=== PATIENT | female | born 1975 | race Caucasian/White ===

== ENCOUNTER 2022-12-18 02:49 | Day surgery (SDC) | payer OTHER ==
[~2022-12-18 02:49] MED LIST: BUPIVACAINE HCL/PF 0.25% (2.5MG/ML) 10 ML VIAL IJ ONE; ceFAZolin SODIUM 1 GM VIAL IVPB ONE; cefOXitin SODIUM 2 GM VIAL (RESTRICTED TO ID) IVPB ONE
[2022-12-18 03:00] VITALS: BMI 33.6
[2022-12-18] MEDS ORDERED: SODIUM CHLORIDE 0.9% 500 ML INFUS.BAG IV ONE ×2 (03:36→07:22)
[2022-12-18] MEDS ORDERED: ONDANSETRON 4 MG/2 ML VIAL IVPUSH ONE (03:37)
[2022-12-18] MEDS ORDERED: morphine CARPU-JECT 2 MG/1 ML DISP.SYRIN IVPUSH ONE (03:40)
[2022-12-18] MEDS ORDERED: ONDANSETRON 4 MG/2 ML VIAL ONE ×2 (03:51→11:23)
[2022-12-18 04:12] LABS: BASO % 0.2 % (0-2.0); EOS % 0.1 % (0-4.5); HEMATOCRIT 35.9 % (32.4-45.2); HEMOGLOBIN 11.9 GM/dL (10.7-15.3); LYMPH % 10.4 % (8-40); MCH 27.9 pg (25.7-33.7); MCHC 33.2 g/dl (32.0-36.0); MEAN PLT VOLUME 7.5 fl (7.5-11.1); NEUT % 82.3 % (42.8-82.8); PLATELET COUNT 319 10^3/uL (134-434); RBC 4.27 M/mm3 (3.60-5.2); RDW 13.8 % (11.6-15.6); WHITE BLOOD COUNT 10.1 K/mm3 (4.0-10.0)
[2022-12-18 04:31] LABS: POTASSIUM 4.4 mmol/L (3.5-5.1)
[2022-12-18 04:33] LABS: ALBUMIN 3.2 g/dl (3.4-5.0); CALCIUM 8.9 mg/dL (8.5-10.1)
[2022-12-18 04:34] LABS: BLOOD UREA NITROGEN 13.7 mg/dL (7-18)
[2022-12-18 04:36] LABS: CREATININE 0.9 mg/dL (0.55-1.3)
[2022-12-18 04:39] LABS: BILIRUBIN,TOTAL 0.7 mg/dL (0.2-1)
[2022-12-18 06:24] LABS: EPI CELLS 22 /uL (0-25.1); HYALINE CASTS 1 /uL (0-3.1); PH,URINE 7.5 (5.0-8.0); URINE APPEARANCE CLEAR; URINE BACTERIA 92 /uL (0-1359); URINE BILIRUBIN NEGATIVE (NEGATIVE); URINE COLOR YELLOW; URINE GLUCOSE (UA) NEGATIVE (NEGATIVE); URINE KETONE NEGATIVE (NEGATIVE); URINE LEUK ESTERASE TRACE (NEGATIVE); URINE NITRITE NEGATIVE (NEGATIVE); URINE PROTEIN 2+ (NEGATIVE); URINE UROBILINOGEN 0.2 mg/dL (0.2-1.0); URINE WBC 37 /uL (0-25.8)
[2022-12-18] MEDS ORDERED: CEFTRIAXONE 1 GM/50 ML BAG ONE (06:42)
[2022-12-18] MEDS ORDERED: CEFTRIAXONE 1 GM in DEXTROSE 5%-WATER - 50 ML IVPB ONE (06:42)
[2022-12-18] MEDS ORDERED: ACETAMINOPHEN 1000 MG/100 ML BAG IVPB ONE (07:10)
[2022-12-18] MEDS ORDERED: ACETAMINOPHEN INJECTION 100 ML IVPB ONE (07:14)
[2022-12-18] MEDS ORDERED: TRIMETHOBENZAMIDE HCL 200MG/2ML INJ IM PRN ×2 (08:45→12:37)
[2022-12-18] MEDS ORDERED: ACETAMINOPHEN 1000 MG/100 ML BAG IVPB PRN ×2 (08:47→12:37)
[2022-12-18] MEDS ORDERED: morphine CARPU-JECT 2 MG/1 ML DISP.SYRIN IVPUSH PRN (08:47)
[2022-12-18] MEDS ORDERED: DEXTROSE 5%-LACTATED RINGERS 1,000 ML IV SCH (09:15)
[2022-12-18 09:28] LABS: INR 1.12 (0.83-1.09)
[2022-12-18 09:30] LABS: ACTIVATED PTT 29.2 SECONDS (25.2-36.5)
[2022-12-18 09:59] LABS: URINE RBC 168 /uL (0-23.9)
[2022-12-18] MEDS ORDERED: ENOXAPARIN NA (PORCINE) 40 MG/0.4 ML DISP.SYRIN SQ SCH (10:00)
[2022-12-18] MEDS ORDERED: BUPIVACAINE HCL/PF 0.25% (2.5MG/ML) 10 ML VIAL ONE (11:03)
[2022-12-18] MEDS ORDERED: HEPARIN NA (PORCINE) 5,000 UNITS/ML 1ML VIAL ONE (11:04)
[2022-12-18] MEDS ORDERED: cefOXitin SODIUM 2 GM VIAL (RESTRICTED TO ID) IVPB ONE (11:04)
[2022-12-18] MEDS ORDERED: oxyCODONE HCL 5 MG TABLET PO PRN ×2 (11:08→12:37)
[2022-12-18] MEDS ORDERED: PROMETHAZINE HCL 25 MG/1 ML VIAL IVPB PRN ×2 (11:08→12:37)
[2022-12-18] MEDS ORDERED: LACTATED RINGERS SOLUTION 1,000 ML IV SCH (11:15)
[2022-12-18] MEDS ORDERED: LIDOCAINE HCL/PF 2% SDV 5ML VIAL ONE (11:23)
[2022-12-18] MEDS ORDERED: KETOROLAC TROMETHAMINE 30 MG/1 ML VIAL ONE (11:23)
[2022-12-18] MEDS ORDERED: PROPOFOL 20 ML ONE (11:23)
[2022-12-18] MEDS ORDERED: ROCURONIUM BROMIDE 50 MG/5 ML SYRINGE ONE (11:23)
[2022-12-18] MEDS ORDERED: DEXAMETHASONE SOD PHOSPHATE 4 MG/1 ML VIAL ONE (11:23)
[2022-12-18] MEDS ORDERED: SEVOFLURANE 250 ML BTL ONE (11:36)
[2022-12-18] MEDS ORDERED: HEPARIN NA (PORCINE) 5,000 UNITS/ML 1ML VIAL SQ ONE (11:41)
[2022-12-18] MEDS ORDERED: BUPIVACAINE HCL/PF 0.25% (2.5MG/ML) 10 ML VIAL IJ ONE (11:46)
[2022-12-18] MEDS ORDERED: SUGAMMADEX SODIUM 200 MG/2 ML VIAL ONE (12:02)
[2022-12-18] MEDS: LACTATED RINGERS SOLUTION 1,000 ML IV SCH (14:02)
[2022-12-19] MEDS: LACTATED RINGERS SOLUTION 1,000 ML IV SCH ×3 (01:46→14:23)
[2022-12-19 09:54] LABS: POTASSIUM 4.8 mmol/L (3.5-5.1)
[2022-12-19 09:56] LABS: BLOOD UREA NITROGEN 10.7 mg/dL (7-18); CALCIUM 8.6 mg/dL (8.5-10.1)
[2022-12-19 09:57] LABS: HEMATOCRIT 33.3 % (32.4-45.2); HEMOGLOBIN 11.2 GM/dL (10.7-15.3); MCH 28.3 pg (25.7-33.7); MCHC 33.8 g/dl (32.0-36.0); MEAN CELL VOLUME 83.8 fl (80-96); PLATELET COUNT 290 10^3/uL (134-434); RBC 3.97 M/mm3 (3.60-5.2); RDW 13.7 % (11.6-15.6); WHITE BLOOD COUNT 12.2 K/mm3 (4.0-10.0)
[2022-12-19 09:59] LABS: CREATININE 0.8 mg/dL (0.55-1.3)
[2022-12-19] MEDS: oxyCODONE HCL 5 MG TABLET PO PRN ×2 (14:18→22:15)
[2022-12-19 15:47] VITALS: RESP 18
[2022-12-20] MEDS: oxyCODONE HCL 5 MG TABLET PO PRN (04:26)
[2022-12-20 08:18] VITALS: BP 145/74; PULSE 58; TEMP 98.4
== END 2022-12-20 10:30 | disposition home or self-care (01) ==
LOC: SUATTDRO 02:49 → JER 02:49 → JERBED 06:48 → UNDOADMOB 06:48 → INTOOBSV 06:48 → UNDOADMOB 08:45 → JERBED 08:45 → J8W 10:09 → SUATTDRO 13:40 → JASUSAT 13:40 → J8W 13:48 → JASUSAT 12-20 10:30
PROVIDERS: ATTEND Nurse Practitioner Family
PROC: 0FT44ZZ Resection of Gallbladder, Percutaneous Endoscopic Approach (ICD-10-PCS; principal; 2022-12-18 13:30)
DX: K81.0 Acute cholecystitis (principal)
CPT/HCPCS: 0241U-QW; 36415; 74177-TC; 76705-TC; 80048; 80053; 80061; 81003; 83036; 83690; 84484; 84703; 85025; 85027; 85610; 85730; 86850; 86900; 86901; 87086; 88304-TC; 93005; 93010; 94760; 97116-GP; 97161-GP; 99285-25; J1644; Q9967

== ENCOUNTER 2023-07-08 13:39 | Emergency (ER) | payer OTHER ==
[2023-07-08 13:56] VITALS: BMI 31.8
[2023-07-08] MEDS ORDERED: ACETAMINOPHEN 1000 MG/100 ML BAG IVPB ONE (15:23)
[2023-07-08] MEDS ORDERED: SODIUM CHLORIDE 0.9% 500 ML INFUS.BAG IV ONE (15:23)
[2023-07-08] MEDS ORDERED: ACETAMINOPHEN INJECTION 100 ML IVPB ONE (16:50)
[2023-07-08 17:01] LABS: EPI CELLS 19 /uL (0-25.1); HYALINE CASTS 0 /uL (0-3.1); URINE APPEARANCE CLEAR; URINE BACTERIA 147 /uL (0-1359); URINE BILIRUBIN NEGATIVE (NEGATIVE); URINE COLOR YELLOW; URINE GLUCOSE (UA) NEGATIVE (NEGATIVE); URINE KETONE NEGATIVE (NEGATIVE); URINE LEUK ESTERASE NEGATIVE (NEGATIVE); URINE NITRITE NEGATIVE (NEGATIVE); URINE PROTEIN 3+ (NEGATIVE); URINE RBC 2448 /uL (0-23.9); URINE UROBILINOGEN 0.2 mg/dL (0.2-1.0)
[2023-07-08 17:06] LABS: BASO % 0.4 % (0-2.0); EOS % 0.3 % (0-4.5); HEMATOCRIT 37.2 % (32.4-45.2); LYMPH % 17.2 % (8-40); MCH 24.6 pg (25.7-33.7); MCHC 32.2 g/dl (32.0-36.0); MEAN CELL VOLUME 76.5 fl (80-96); MEAN PLT VOLUME 7.4 fl (7.5-11.1); MONO % 11.7 % (3.8-10.2); NEUT % 70.4 % (42.8-82.8); PLATELET COUNT 307 10^3/uL (134-434); RBC 4.86 M/mm3 (3.60-5.2); RDW 15.5 % (11.6-15.6); WHITE BLOOD COUNT 5.8 K/mm3 (4.0-10.0)
[2023-07-08 17:41] LABS: POTASSIUM 4.2 mmol/L (3.5-5.1)
[2023-07-08 17:43] LABS: CALCIUM 9.5 mg/dL (8.5-10.1)
[2023-07-08 17:44] LABS: ALBUMIN 3.5 g/dl (3.4-5.0); BLOOD UREA NITROGEN 11.8 mg/dL (7-18)
[2023-07-08 17:49] LABS: BILIRUBIN,TOTAL 0.2 mg/dL (0.2-1); TOT PROT 7.6 g/dl (6.4-8.2)
[2023-07-08 18:16] LABS: HCG,QUALITATIVE URINE Negative
[2023-07-08] MEDS ORDERED: KETOROLAC TROMETHAMINE 30 MG/1 ML VIAL IVPUSH ONE (18:17)
[2023-07-08] MEDS ORDERED: KETOROLAC TROMETHAMINE 30 MG/1 ML VIAL ONE (18:20)
[2023-07-08] MEDS ORDERED: predniSONE 20 MG TABLET (UD) PO ONE (20:37)
[2023-07-08] MEDS ORDERED: guaiFENesin/D-METHORPHAN HB 10 ML UNIT-DOSE CUPS PO ONE (20:37)
[2023-07-08] MEDS ORDERED: guaiFENesin 200 MG/10 ML 10 ML UNIT-DOSE CUPS ONE (20:45)
[2023-07-08] MEDS ORDERED: predniSONE 20 MG TABLET (UD) ONE (20:45)
[2023-07-08 20:57] VITALS: BP 140/73; PULSE 94; RESP 20; TEMP 98.3
[2023-07-08 22:19] LABS: URINE WBC 69 /uL (0-25.8)
== END 2023-07-08 20:59 | disposition home or self-care (01) ==
LOC: JER 13:39
PROC: 3E033NZ Introduction of Analgesics, Hypnotics, Sedatives into Peripheral Vein, Percutaneous Approach (ICD-10-PCS; principal; 2023-07-08)
PROC: 3E033GC Introduction of Other Therapeutic Substance into Peripheral Vein, Percutaneous Approach (ICD-10-PCS; 2023-07-08)
DX: R19.7 Diarrhea, unspecified (principal); J40 Bronchitis, not specified as acute or chronic; Z20.822 Contact with and (suspected) exposure to COVID-19
CPT/HCPCS: 0241U-QW; 36415; 71046-TC-FY; 76775-TC; 80053; 81003; 83690; 84703; 85025; 87086; 87186; 93005; 93010; 99285-25

== ENCOUNTER 2023-09-10 12:53 | Emergency (ER) | payer OTHER ==
[2023-09-10 13:00] VITALS: BP 124/87; PULSE 98; RESP 20; TEMP 97.8; BMI 33.5
[2023-09-10 15:42] LABS: BASO % 0.4 % (0-2.0); HEMATOCRIT 36.2 % (32.4-45.2); HEMOGLOBIN 11.6 GM/dL (10.7-15.3); LYMPH % 27.8 % (8-40); MCHC 32.1 g/dl (32.0-36.0); MEAN CELL VOLUME 74.7 fl (80-96); MEAN PLT VOLUME 7.8 fl (7.5-11.1); MONO % 11.5 % (3.8-10.2); NEUT % 59.3 % (42.8-82.8); PLATELET COUNT 246 10^3/uL (134-434); RBC 4.85 M/mm3 (3.60-5.2); RDW 16.7 % (11.6-15.6); WHITE BLOOD COUNT 6.3 K/mm3 (4.0-10.0)
[2023-09-10 15:46] LABS: EPI CELLS 24 /uL (0-25.1); HYALINE CASTS 1 /uL (0-3.1); PH,URINE 5.5 (5.0-8.0); URINE APPEARANCE CLEAR; URINE BACTERIA >9,000 /uL (0-1359); URINE BILIRUBIN NEGATIVE (NEGATIVE); URINE COLOR YELLOW; URINE GLUCOSE (UA) NEGATIVE (NEGATIVE); URINE KETONE NEGATIVE (NEGATIVE); URINE LEUK ESTERASE NEGATIVE (NEGATIVE); URINE NITRITE POSITIVE (NEGATIVE); URINE PROTEIN 3+ (NEGATIVE); URINE RBC 89 /uL (0-23.9); URINE UROBILINOGEN 0.2 mg/dL (0.2-1.0)
[2023-09-10 16:01] LABS: POTASSIUM 4.3 mmol/L (3.5-5.1)
[2023-09-10 16:03] LABS: CALCIUM 9.1 mg/dL (8.5-10.1)
[2023-09-10 16:04] LABS: ALBUMIN 3.6 g/dl (3.4-5.0)
[2023-09-10 16:08] LABS: BILIRUBIN,TOTAL 0.3 mg/dL (0.2-1); TOT PROT 7.4 g/dl (6.4-8.2)
[2023-09-10] MEDS ORDERED: CEPHALEXIN MONOHYDRATE 500 MG CAPSULE (UD) PO ONE (17:06)
[2023-09-10] MEDS ORDERED: diazePAM 2 MG TABLET PO ONE (17:06)
[2023-09-10] MEDS ORDERED: IBUPROFEN 600 MG TABLET (FP) PO ONE ×2 (17:06→17:15)
[2023-09-10] MEDS ORDERED: CEPHALEXIN MONOHYDRATE 500 MG CAPSULE (UD) ONE (17:14)
[2023-09-10] MEDS ORDERED: diazePAM 2 MG TABLET ONE (17:15)
[2023-09-10 18:40] LABS: URINE WBC 73.4 /uL (0-25.8)
== END 2023-09-10 18:23 | disposition home or self-care (01) ==
LOC: JERFT 12:53
DX: N30.01 Acute cystitis with hematuria (principal); F41.9 Anxiety disorder, unspecified; M54.9 Dorsalgia, unspecified; F43.0 Acute stress reaction
CPT/HCPCS: 36415; 74176-TC; 80053; 81003; 84443; 84703; 85025; 87086; 87186; 99284-25